=== PATIENT | female | born 1940 | race African-American/Black ===

== ENCOUNTER → 2017-05-30 | Outpatient (CLI) | payer MEDICARE | LOC: RAH 13:04 | PROVIDERS: ATTEND Family Medicine | DX: N18.4 Chronic kidney disease, stage 4 (severe) (principal); N26.1 Atrophy of kidney (terminal) | CPT/HCPCS: 76770 ==

== ENCOUNTER → 2019-10-24 | Outpatient (CLI) | payer MEDICARE | END | disposition home or self-care (01) | LOC: SHCH 08:34 | PROVIDERS: ATTEND Internal Medicine Cardiovascular Disease | DX: R00.2 Palpitations (principal) | CPT/HCPCS: 93306; 93356 ==

== ENCOUNTER → 2019-11-12 | Outpatient (CLI) | payer OTHER | END | disposition home or self-care (01) | LOC: RAH 08:26 | PROVIDERS: ATTEND Internal Medicine Cardiovascular Disease | DX: Z13.6 Encounter for screening for cardiovascular disorders (principal) | CPT/HCPCS: 75571 ==

== ENCOUNTER → 2019-12-21 | Outpatient (CLI) | payer MEDICARE | END | disposition home or self-care (01) | LOC: RAH 10:28 | PROVIDERS: ATTEND Internal Medicine Gastroenterology | DX: I25.10 Atherosclerotic heart disease of native coronary artery without angina pectoris (principal); R18.8 Other ascites; R63.4 Abnormal weight loss | CPT/HCPCS: 74176 ==

== ENCOUNTER → 2020-01-18 | Day surgery (SDC) | payer MEDICARE ==
[2020-01-18 08:57] LABS: INR 1.01 (0.85-1.15); PARTIAL THROMBOPLASTIN TIME 24.5 SEC (26.3-35.5); PROTHROMBIN TIME 10.9 SEC (9.6-11.6)
--- NOTE | 2020-01-18 09:35 | NUR ---
U/S GD RT INGUINAL FLUID ASPIRATION PROCEDURE PERFORMED BY DR Ruddy BEAVERS. PUNCTURE SITE RT PELVIS AND PATIENT TOLERATED PROCEDURE WELL. SPECIMEN COLLECTED AND SENT TO LAB. END OF PROCEDURE AT 0920. BIOPSY NEEDLE REMOVED AND DRESSING APPLIED. NO BLEEDING NOTED. DISCHARGE INSTRUCTIONS GIVEN TO PATIENT AND VERBALIZED UNDERSTANDING. DISCHARGED VIA W/C AT 0935 AAO X3 WITH NO C/O PAIN.
[2020-01-18 14:22] LABS: APPEARANCE BODY FLUID SLIGHTLY CLOUDY (CLEAR); COLOR,BODY FLUID YELLOW (LT YELLOW); SPECIMENTYPE,BODY FLUID ASPIRATE; TOTAL VOLUME,BODY FLUID 110 mL
[2020-01-18 14:25] LABS: BODY FLUID WBC 240 /cu. mm.
[2020-01-18 14:26] LABS: BODY FLUID RBC 442 /cu. mm.
[2020-01-18 14:31] LABS: BF LYMPHOCYTE 87 %; BF MONOCYTE 8 %
== END | disposition home or self-care (01) ==
LOC: DAH 07:46 → EDSTATUS 08:00
PROVIDERS: ATTEND Internal Medicine Hematology & Oncology
DX: R19.09 Other intra-abdominal and pelvic swelling, mass and lump (principal); K21.9 Gastro-esophageal reflux disease without esophagitis; I12.0 Hypertensive chronic kidney disease with stage 5 chronic kidney disease or end stage renal disease; N18.6 End stage renal disease; Z79.01 Long term (current) use of anticoagulants; Z90.710 Acquired absence of both cervix and uterus; Z98.890 Other specified postprocedural states; Z79.899 Other long term (current) drug therapy; Z82.61 Family history of arthritis; Z82.0 Family history of epilepsy and other diseases of the nervous system; Z99.2 Dependence on renal dialysis
CPT/HCPCS: 10160; 36415; 57010; 76942; 85610; 85730; 87071; 87205; 88112; 88305; 88341; 88342; 89051

== ENCOUNTER → 2020-02-11 | Day surgery (SDC) | payer MEDICARE ==
[~2020-02-11] MED LIST: IOPAMIDOL 10 ML VIAL ONE
== END | disposition home or self-care (01) ==
LOC: RAH 07:59 → EDSTATUS 08:00 → DAH 08:04
PROVIDERS: ATTEND Internal Medicine Hematology & Oncology
DX: R19.09 Other intra-abdominal and pelvic swelling, mass and lump (principal); M19.90 Unspecified osteoarthritis, unspecified site; I51.7 Cardiomegaly; N26.1 Atrophy of kidney (terminal); Z90.710 Acquired absence of both cervix and uterus
CPT/HCPCS: 49180; 74176; 87071; 87205 ×2; 88112; 88305; 88341; 88342; 89060; A4215; 57010; 76942

== ENCOUNTER → 2020-04-02 | Outpatient (CLI) | payer MEDICARE ==
[2020-04-02 10:56] LABS: INR 1.05 (0.85-1.15); PROTHROMBIN TIME 11.4 SEC (9.6-11.6)
[2020-04-02 10:57] LABS: PARTIAL THROMBOPLASTIN TIME 26.2 SEC (26.3-35.5)
== END ==
LOC: RAH 09:23
PROVIDERS: ATTEND Internal Medicine Hematology & Oncology
DX: M79.89 Other specified soft tissue disorders (principal); I12.0 Hypertensive chronic kidney disease with stage 5 chronic kidney disease or end stage renal disease; N18.6 End stage renal disease; K21.9 Gastro-esophageal reflux disease without esophagitis; M19.90 Unspecified osteoarthritis, unspecified site; Z88.0 Allergy status to penicillin; Z79.899 Other long term (current) drug therapy
CPT/HCPCS: 10030; 36415; 85610; 85730; C1729; 76942

== ENCOUNTER 2020-04-17 13:01 | Emergency (ER) | payer MEDICARE ==
[2020-04-17] MEDS ORDERED: ACETAMINOPHEN 500 MG TABLET ONE (13:22)
[2020-04-17 14:08] LABS: BASOPHILS % (AUTO) 0.3 % (0.0-5.0); HEMATOCRIT 34.8 % (36-48); LYMPHOCYTES % (AUTO) 6.5 % (21.0-51.0); MEAN CORPUSCULAR HEMOGLOBIN 26.9 pg (27.0-33.0); MEAN CORPUSCULAR HGB CONC 31.6 g/dL (32.0-36.0); MEAN CORPUSCULAR VOLUME 85.1 fL (79-99); NEUTROPHILS % (AUTO) 86.8 % (40.0-77.0); PLATELET COUNT (AUTO) 112 K/uL (130-400); RED BLOOD CELL COUNT(AUTO) 4.09 MIL/uL (4.00-5.50); RED CELL DISTRIBUTION WIDTH 16.9 % (11.0-15.5); WHITE BLOOD COUNT (AUTO) 9.5 K/uL (4.8-10.8)
[2020-04-17 14:18] LABS: CREATININE 6.4 mg/dL (0.5-1.5); POTASSIUM 3.9 mmol/L (3.5-5.1)
[2020-04-17 14:24] LABS: ALBUMIN 3.6 g/dL (3.5-5.0); BILIRUBIN,TOTAL 0.6 mg/dL (0.2-1.0); TOTAL PROTEIN, SERUM 7.8 g/dL (6.0-8.3)
[2020-04-17 14:34] LABS: B-TYPE NATRIURETIC PEPTIDE 3600 pg/mL (0-100)
== END 2020-04-17 15:01 | disposition left against medical advice (07) ==
LOC: EDH 13:01
DX: E87.70 Fluid overload, unspecified (principal); R79.89 Other specified abnormal findings of blood chemistry; J18.1 Lobar pneumonia, unspecified organism
CPT/HCPCS: 36415; 71045; 80053; 83880; 84484; 85025; 93005

== ENCOUNTER → 2020-04-24 | Outpatient (CLI) | payer MEDICARE ==
[~2020-04-24] MED LIST changes: +IOHEXOL-350 75 ML VIAL IV ONE; -IOPAMIDOL 10 ML VIAL ONE
== END | disposition home or self-care (01) ==
LOC: RAH 12:34
PROVIDERS: ATTEND Internal Medicine Hematology & Oncology
DX: M79.89 Other specified soft tissue disorders (principal)
CPT/HCPCS: 72194; Q9967

== ENCOUNTER → 2020-07-11 | Outpatient (CLI) | payer MEDICARE | END | disposition home or self-care (01) | LOC: RAH 12:07 | PROVIDERS: ATTEND Internal Medicine Hematology & Oncology | DX: M79.89 Other specified soft tissue disorders (principal); M25.451 Effusion, right hip; L02.415 Cutaneous abscess of right lower limb | CPT/HCPCS: 73721 ==

== ENCOUNTER → 2020-07-14 | Outpatient (CLI) | payer MEDICARE | END | disposition home or self-care (01) | LOC: RAH 14:03 | PROVIDERS: ATTEND Family Medicine | DX: M79.89 Other specified soft tissue disorders (principal); M79.604 Pain in right leg | CPT/HCPCS: 73718 ==